=== PATIENT | male | born 1965 | race Caucasian/White ===

== ENCOUNTER → 2016-08-22 | Outpatient (CLI) | payer MEDICARE ==
[~2016-08-22] MED LIST: /DULO30CA OR; ACET500C; ACET500C OR; COLA100C2 OR; COLA100C2 PO; EXCETAB68 PO; EXCETAB81 PO; FLEXERIL PO; GEMF600T PO; HYDR-3719 PO; HYDROCODONE/APAP PO; LIDO5DIS TOP; MELA0.02 PO; MELOPOW PO; MS C15TA5 OR; NAPR500T2 PO; NEUR300C OR; OXYC15TA76 PO; PERC5TAB8 OR; PRIL20CA OR; SM M PO; SOMA; SOMA350T; SOMA350T OR; SOMA350T PO; TRAM50TA2; TRAM50TA2 OR; VICO5TAB; VICO5TAB OR; VICODINES TAB PO; [UNRECOGNIZED DRUG - CODE] PO
--- NOTE | 2016-08-22 09:28 | REP ---
CERVICAL SPINE, SEVEN VIEWS: HISTORY: Spondylosis. The cervical spine is visualized from C1 through C7 in the lateral radiographs. There is no acute fracture or subluxation. The C5-6 and C6-7 intervertebral discs are decreased in height consistent with disc degeneration. Osteophytes are present on C5 and C6. The neural foramina are not well visualized, however, there appears to be narrowing of the C4 through C6 neural foramina. IMPRESSION: Degenerative change as described above.
--- NOTE | 2016-08-22 09:44 | REP ---
LUMBAR SPINE, SEVEN VIEWS: HISTORY: Spondylosis. COMPARISON: 07/14/2001. There is no acute fracture or subluxation. The intervertebral discs are decreased in height consistent with disc degeneration. Osteophytes are present throughout the lumbar spine. There is narrowing of the L4-5 and L5-S1 facet joints. IMPRESSION: Degenerative change as described above.
== END | disposition home or self-care (01) ==
LOC: M CLY 07:34
PROVIDERS: ATTEND Neurological Surgery
DX: M47.892 Other spondylosis, cervical region (principal); M47.896 Other spondylosis, lumbar region; E66.9 Obesity, unspecified; M47.897 Other spondylosis, lumbosacral region

== ENCOUNTER → 2016-08-25 | Outpatient (CLI) | payer MEDICARE ==
--- NOTE | 2016-08-25 16:22 | REP ---
MRI LUMBAR SPINE WITHOUT AND WITH CONTRAST: 08/25/2016: Clinical history: Spondylosis, chronic low back pain. Prior right hemilaminectomy at L5 - S1. Technique: Sagittal T1, T2 and STIR images with axial T1-T2 sequences followed by infusion of 20 mL as of ProHance and axial T1 sequence with sagittal fat suppressed T1 sequence provided. Comparison: MRI 12/06/2015, x-ray 08/22/2016. Findings: Slight loss of lordosis on the sagittal images again noted. There is diffuse disc space narrowing from T12-L1 through L5, S1, least involving L5-S1 discogenic endplate changes at the L4-5, L1-2 and less at L3-4. There is loss of disc water signal at all 6 of these levels. There is no compression deformity or destructive bone lesion at any level. The conus terminates at the L1-2 level. At T11-12 there is no disc bulge or herniation and no spinal or foraminal stenosis. At T12-L1 there is no significant disc bulge or herniation and no spinal or foraminal stenosis. At L1-2 there is a broad-based disc bulge with central disc protrusion and right paracentral disc extrusion. The extruded fragment has migrated inferiorly. I measure at 10 x 10 x 7.5 mm. The conus terminates at the L1-2 level adjacent and the of disc protrusion abuts and flattens the conus. There is central canal stenosis and bilateral foraminal stenosis. At L2-3 there is a diffuse disc bulge small central disc protrusion unchanged. Crowding of the nerve roots in the central canal is noted and stable. Foramina are adequate on both sides. At L3-4 there is a diffuse disc bulge and a central disc extrusion extending inferiorly and unchanged. This causes central canal stenosis with AP canal diameter 7.7 mm. The foramina are without nerve root compression. At L4-5 diffuse disc bulge with ligamentum flavum and facet hypertrophy greater than at the levels above combining with the broad-based disc bulge. This contributes to mild degree of spinal stenosis and is unchanged from the previous study. Facet arthropathy is noted. There is a rim laminotomy defect at this level. Stenosis and nerve root compression of the right L4 nerve root in the foramen and to a lesser extent the left nerve root is compressed as well in its foramen. At L5-S1 there is a broad-based disc bulge and small right paracentral disc extrusion which is unchanged. It abuts and displaces the right S1 nerve root in the central canal. It contributes to some foraminal stenosis on that right side along with facet spur. The left foramen also shows stenosis due to combined factors. Contrast examination demonstrates scar tissue forming around the right L4 and right L5 nerve roots in the foramina and there is a laminotomy at L4-5 of laminectomy L5-S1, again seen. I do not see abnormal enhancement of the epidural space otherwise. There is no evidence of an abscess. Impression: 1. Chronic diffuse extensive degenerative disc changes with an extruded disc at L1-2 which is migrating inferiorly behind the L1 vertebral body and along with the disc extrusion other degenerative changes contributing to spinal stenosis at this level. The extrusion is now below the superior endplate of L1 and measures 10 x 10 x 7.5 mm. 2. Central disc protrusions at L2-3 with mild central canal stenosis, stable. 3. The L3-4 level shows broad-based disc bulge with central canal stenosis, disc extrusion and hypertrophic facet and ligamentum combining to cause moderate stenosis unchanged. Foramina with some mild encroachment. 4. At L4-5 there is also stable spinal stenosis from combined factors of disc bulge, hypertrophic, ligamentum, and facet arthropathy with post laminotomy and enhancement of scar tissue around the L4 root in the right foramen. 5. At L5-S1, there is also a diffuse disc bulge right paracentral disc extrusion and enhancement around the right lateral neural canal and right L5 nerve root from granulation tissue. This is unchanged. Only progressive sign is at L1-2 as described above. Signed by Umang Kim MD 08/25/2016 07:39 P
== END | disposition home or self-care (01) ==
LOC: M RAD 14:12
PROVIDERS: ATTEND Neurological Surgery
DX: M47.896 Other spondylosis, lumbar region (principal)
CPT/HCPCS: 72158; A9576

== ENCOUNTER → 2016-12-12 | Outpatient (REF) | payer MEDICARE ==
[2016-12-12 11:50] LABS: ALBUMIN 4.3 GM/DL (3.2-5.2); ALBUMIN/GLOBULIN RATIO 1.23 (1.00-1.93); ALKALINE PHOSPHATASE 113 U/L (45-117); ALT/SGPT 50 U/L (12-78); ANION GAP 8 MEQ/L (8-16); AST/SGOT 31 U/L (15-37); BILIRUBIN,TOTAL 0.7 MG/DL (0.2-1.0); BLOOD UREA NITROGEN 28 MG/DL (7-18); CARBON DIOXIDE LEVEL 26 MEQ/L (21-32); CHLORIDE LEVEL 108 MEQ/L (98-107); CREATININE FOR GFR 1.06 MG/DL (0.70-1.30); GLOMERULAR FILTRATION RATE > 60.0 (>56); GLUCOSE, FASTING 98 MG/DL (70-105); POTASSIUM SERUM 4.1 MEQ/L (3.5-5.1); SODIUM LEVEL 142 MEQ/L (136-145); TOTAL PROTEIN 7.8 GM/DL (6.4-8.2)
== END ==
LOC: M SFHCCLAY 07:48
PROVIDERS: ATTEND Family Medicine
DX: E78.2 Mixed hyperlipidemia (principal)

== ENCOUNTER → 2017-06-15 | Outpatient (REF) | payer MEDICARE ==
[~2017-06-15] MED LIST changes: -MELA0.02 PO; +MELA3TAB49 PO
[2017-06-15 12:23] LABS: ALBUMIN 4.1 GM/DL (3.2-5.2); ALBUMIN/GLOBULIN RATIO 1.14 (1.00-1.93); ALKALINE PHOSPHATASE 107 U/L (45-117); ALT/SGPT 43 U/L (12-78); ANION GAP 7 MEQ/L (8-16); AST/SGOT 25 U/L (7-37); BILIRUBIN,TOTAL 0.5 MG/DL (0.2-1.0); BLOOD UREA NITROGEN 17 MG/DL (7-18); CALCIUM LEVEL 9.2 MG/DL (8.5-10.1); CARBON DIOXIDE LEVEL 29 MEQ/L (21-32); CHLORIDE LEVEL 104 MEQ/L (98-107); CHOLESTEROL LEVEL 259 MG/DL (<200); CREATININE FOR GFR 0.83 MG/DL (0.70-1.30); GLOMERULAR FILTRATION RATE > 60.0 (>56); GLUCOSE, FASTING 98 MG/DL (70-105); POTASSIUM SERUM 4.4 MEQ/L (3.5-5.1); SODIUM LEVEL 140 MEQ/L (136-145); TOTAL PROTEIN 7.7 GM/DL (6.4-8.2); TRIGLYCERIDES LEVEL 233 MG/DL (<150)
== END ==
LOC: M SFHCCLAY 07:10
PROVIDERS: ATTEND Family Medicine
DX: E78.2 Mixed hyperlipidemia (principal); Z12.5 Encounter for screening for malignant neoplasm of prostate; I10 Essential (primary) hypertension
CPT/HCPCS: 80053; 80061; 84443; G0103

== ENCOUNTER → 2017-07-31 | Outpatient (CLI) | payer MEDICARE | LOC: M WUC 12:19 | DX: M25.512 Pain in left shoulder (principal); M25.522 Pain in left elbow; M25.532 Pain in left wrist | CPT/HCPCS: 73030 ==

== ENCOUNTER → 2017-10-21 | Outpatient (CLI) | payer MEDICARE | LOC: M RAD 06:34 | DX: M48.061 Spinal stenosis, lumbar region without neurogenic claudication (principal); M51.26 Other intervertebral disc displacement, lumbar region; M43.06 Spondylolysis, lumbar region; M51.27 Other intervertebral disc displacement, lumbosacral region; M43.07 Spondylolysis, lumbosacral region; M99.83 Other biomechanical lesions of lumbar region | CPT/HCPCS: 72148 ==

== ENCOUNTER → 2018-04-09 | Outpatient (REF) | payer MEDICARE ==
[2018-04-09 12:23] LABS: ALBUMIN 4.1 GM/DL (3.2-5.2); ALBUMIN/GLOBULIN RATIO 1.14 (1.00-1.93); ALKALINE PHOSPHATASE 125 U/L (45-117); ALT/SGPT 59 U/L (12-78); ANION GAP 8 MEQ/L (8-16); AST/SGOT 35 U/L (7-37); BILIRUBIN,TOTAL 0.7 MG/DL (0.2-1.0); BLOOD UREA NITROGEN 23 MG/DL (7-18); CALCIUM LEVEL 8.9 MG/DL (8.5-10.1); CARBON DIOXIDE LEVEL 25 MEQ/L (21-32); CHLORIDE LEVEL 109 MEQ/L (98-107); CHOLESTEROL LEVEL 171 MG/DL (<200); CREATININE FOR GFR 1.06 MG/DL (0.70-1.30); GLOMERULAR FILTRATION RATE > 60.0 (>56); GLUCOSE, FASTING 91 MG/DL (70-100); HDL CHOLESTEROL 41 MG/DL (>40); LDL CHOLESTEROL 104 MG/DL (<100); NON-HDL-C 130 MG/DL; POTASSIUM SERUM 4.1 MEQ/L (3.5-5.1); SODIUM LEVEL 142 MEQ/L (136-145); TOTAL PROTEIN 7.7 GM/DL (6.4-8.2); TRIGLYCERIDES LEVEL 130 MG/DL (<150)
== END ==
LOC: M SFHCCLAY 07:07
DX: I10 Essential (primary) hypertension (principal); E78.2 Mixed hyperlipidemia
CPT/HCPCS: 80053

== ENCOUNTER → 2018-07-12 | Outpatient (REF) | payer MEDICARE ==
[2018-07-12 12:10] LABS: CHOLESTEROL LEVEL 184 MG/DL (<200); CHOLESTEROL RISK RATIO 4.181 (<5); HDL CHOLESTEROL 44 MG/DL (>40); LDL CHOLESTEROL 106 MG/DL (<100); NON-HDL-C 140 MG/DL; TRIGLYCERIDES LEVEL 171 MG/DL (<150)
== END ==
LOC: M SFHCCLAY 07:23
DX: E78.2 Mixed hyperlipidemia (principal)
CPT/HCPCS: 80061

== ENCOUNTER → 2019-02-25 | Outpatient (REF) | payer MEDICARE ==
[~2019-02-25] MED LIST changes: -/DULO30CA OR; +CYMB1CAP5 OR
[2019-02-25 11:58] LABS: HEMATOCRIT 47.7 % (42.0-52.0); HEMOGLOBIN 15.7 g/dl (13.5-17.5); MEAN CORPUSCULAR HEMOGLOBIN 30.2 pg (27.0-33.0); MEAN CORPUSCULAR HGB CONC 32.9 g/dl (32.0-36.5); MEAN CORPUSCULAR VOLUME 91.7 fl (80.0-96.0); PLATELET COUNT, AUTOMATED 218 10^3/uL (150-450); WHITE BLOOD COUNT 5.8 10^3/uL (4.0-10.0)
[2019-02-25 12:13] LABS: ALBUMIN 3.8 GM/DL (3.2-5.2); ALT/SGPT 61 U/L (12-78); BILIRUBIN,TOTAL 0.5 MG/DL (0.2-1.0); BLOOD UREA NITROGEN 23 MG/DL (7-18); CALCIUM LEVEL 8.9 MG/DL (8.5-10.1); CARBON DIOXIDE LEVEL 31 MEQ/L (21-32); CHLORIDE LEVEL 107 MEQ/L (98-107); CHOLESTEROL LEVEL 197 MG/DL (<200); CREATININE FOR GFR 0.88 MG/DL (0.70-1.30); GLOMERULAR FILTRATION RATE > 60.0 (>56); GLUCOSE, FASTING 98 MG/DL (70-100); HDL CHOLESTEROL 49 MG/DL (>40); LDL CHOLESTEROL 121 MG/DL (<100); NON-HDL-C 148 MG/DL; POTASSIUM SERUM 4.4 MEQ/L (3.5-5.1); SODIUM LEVEL 144 MEQ/L (136-145); TRIGLYCERIDES LEVEL 135 MG/DL (<150)
== END ==
LOC: M SFHCCLAY 07:03
PROVIDERS: ATTEND Nurse Practitioner Family
DX: K21.9 Gastro-esophageal reflux disease without esophagitis (principal); I10 Essential (primary) hypertension; E78.2 Mixed hyperlipidemia

== ENCOUNTER → 2019-08-26 | Outpatient (REF) | payer MEDICARE ==
[2019-08-26 12:27] LABS: ALBUMIN 4.1 GM/DL (3.2-5.2); ALT/SGPT 34 U/L (12-78); BILIRUBIN,TOTAL 0.5 MG/DL (0.2-1.0); BLOOD UREA NITROGEN 16 MG/DL (7-18); CARBON DIOXIDE LEVEL 31 MEQ/L (21-32); CHLORIDE LEVEL 104 MEQ/L (98-107); CHOLESTEROL LEVEL 168 MG/DL (<200); CHOLESTEROL RISK RATIO 3.652 (<5); CREATININE FOR GFR 0.97 MG/DL (0.70-1.30); GLOMERULAR FILTRATION RATE > 60.0 (>56); GLUCOSE, FASTING 85 MG/DL (70-100); HDL CHOLESTEROL 46 MG/DL (>40); LDL CHOLESTEROL 102 MG/DL (<100); NON-HDL-C 122 MG/DL; POTASSIUM SERUM 4.3 MEQ/L (3.5-5.1); SODIUM LEVEL 140 MEQ/L (136-145); TOTAL PROTEIN 7.4 GM/DL (6.4-8.2); TRIGLYCERIDES LEVEL 102 MG/DL (<150)
== END ==
LOC: M SFHCCLAY 07:02
PROVIDERS: ATTEND Nurse Practitioner Family
DX: I10 Essential (primary) hypertension (principal); E78.2 Mixed hyperlipidemia

== ENCOUNTER → 2020-10-09 | Outpatient (REF) | payer MEDICARE ==
[~2020-10-09] MED LIST changes: +OXYC-1 PO; -OXYC15TA76 PO
[2020-10-09 16:25] LABS: HEMOGLOBIN 9.8 g/dl (13.5-17.5); MEAN CORPUSCULAR HEMOGLOBIN 29.2 pg (27.0-33.0); MEAN CORPUSCULAR HGB CONC 31.6 g/dl (32.0-36.5); MEAN CORPUSCULAR VOLUME 92.3 fl (80.0-96.0); PLATELET COUNT, AUTOMATED 474 10^3/uL (150-450); RED BLOOD COUNT 3.36 10^6/uL (4.30-6.10); WHITE BLOOD COUNT 7.9 10^3/uL (4.0-10.0)
== END ==
LOC: M SFHCCLAY 10:19
PROVIDERS: ATTEND Family Medicine
DX: D64.9 Anemia, unspecified (principal)
CPT/HCPCS: 85027; G0463

== ENCOUNTER → 2020-11-09 | Outpatient (REF) | payer MEDICARE ==
[2020-11-09 12:07] LABS: HEMATOCRIT 37.6 % (42.0-52.0); HEMOGLOBIN 11.4 g/dl (13.5-17.5); MEAN CORPUSCULAR HEMOGLOBIN 26.1 pg (27.0-33.0); MEAN CORPUSCULAR HGB CONC 30.3 g/dl (32.0-36.5); PLATELET COUNT, AUTOMATED 309 10^3/uL (150-450); RED BLOOD COUNT 4.37 10^6/uL (4.30-6.10)
[2020-11-09 13:33] LABS: ALBUMIN 4.1 GM/DL (3.2-5.2); ALT/SGPT 41 U/L (12-78); BILIRUBIN,TOTAL 0.5 MG/DL (0.2-1.0); BLOOD UREA NITROGEN 21 MG/DL (7-18); CALCIUM LEVEL 10.2 MG/DL (8.5-10.1); CARBON DIOXIDE LEVEL 27 MEQ/L (21-32); CHLORIDE LEVEL 104 MEQ/L (98-107); CHOLESTEROL LEVEL 229 MG/DL (<200); CHOLESTEROL RISK RATIO 4.163 (<5); CREATININE FOR GFR 0.76 MG/DL (0.70-1.30); FERRITIN 39 NG/ML (26-388); FOLATE 20.3 NG/ML (>5.4); GLOMERULAR FILTRATION RATE > 60.0 (>56); GLUCOSE, FASTING 82 MG/DL (70-100); HDL CHOLESTEROL 55 MG/DL (>40); IRON (FE) 39 UG/DL (65-175); LDL CHOLESTEROL 137 MG/DL (<100); NON-HDL-C 174 MG/DL; PERCENT SATURATION 8.5 % (19.7-50.0); POTASSIUM SERUM 4.4 MEQ/L (3.5-5.1); SODIUM LEVEL 138 MEQ/L (136-145); TOTAL IRON BINDING CAPACITY 458 UG/DL (250-450); TOTAL PROTEIN 8.1 GM/DL (6.4-8.2); TRIGLYCERIDES LEVEL 184 MG/DL (<150); VITAMIN B12 LEVEL 449 PG/ML (247-911)
== END ==
LOC: M SFHCCLAY 08:21
PROVIDERS: ATTEND Nurse Practitioner Family
DX: D64.9 Anemia, unspecified (principal); I10 Essential (primary) hypertension; N40.0 Benign prostatic hyperplasia without lower urinary tract symptoms; E78.2 Mixed hyperlipidemia
CPT/HCPCS: 80053; 80061; 82607; 82728; 82746; 83550; 85027; 85046; G0103; G0463

== ENCOUNTER → 2020-12-03 | Outpatient (REF) | payer MEDICARE ==
[2020-12-03 11:45] LABS: HEMATOCRIT 40.9 % (42.0-52.0); HEMOGLOBIN 12.2 g/dl (13.5-17.5); MEAN CORPUSCULAR HEMOGLOBIN 25.2 pg (27.0-33.0); MEAN CORPUSCULAR HGB CONC 29.8 g/dl (32.0-36.5); MEAN CORPUSCULAR VOLUME 84.3 fl (80.0-96.0); PLATELET COUNT, AUTOMATED 277 10^3/uL (150-450); RED BLOOD COUNT 4.85 10^6/uL (4.30-6.10); WHITE BLOOD COUNT 5.7 10^3/uL (4.0-10.0)
[2020-12-03 12:35] LABS: ALBUMIN 4.1 GM/DL (3.2-5.2); ALT/SGPT 34 U/L (12-78); BILIRUBIN,TOTAL 0.4 MG/DL (0.2-1.0); BLOOD UREA NITROGEN 21 MG/DL (7-18); CALCIUM LEVEL 9.8 MG/DL (8.5-10.1); CARBON DIOXIDE LEVEL 29 MEQ/L (21-32); CHLORIDE LEVEL 106 MEQ/L (98-107); CREATININE FOR GFR 0.86 MG/DL (0.70-1.30); GLOMERULAR FILTRATION RATE > 60.0 (>56); GLUCOSE, FASTING 106 MG/DL (70-100); IRON (FE) 29 UG/DL (65-175); PERCENT SATURATION 6.4 % (19.7-50.0); POTASSIUM SERUM 4.2 MEQ/L (3.5-5.1); SODIUM LEVEL 139 MEQ/L (136-145); TOTAL IRON BINDING CAPACITY 451 UG/DL (250-450); TOTAL PROTEIN 7.9 GM/DL (6.4-8.2)
== END ==
LOC: M SFHCCLAY 07:32
PROVIDERS: ATTEND Nurse Practitioner Family
DX: D64.9 Anemia, unspecified (principal); I10 Essential (primary) hypertension

== ENCOUNTER → 2020-12-07 | Outpatient (CLI) | payer MEDICARE ==
--- NOTE | 2020-12-07 09:40 | REP ---
INDICATION: M25.511, RIGHT SHOULDER PAIN COMPARISON: None. TECHNIQUE: Three views right shoulder. FINDINGS: There is no evidence of acute fracture, dislocation, or intrinsic bone disease.Small tendinous calcification is seen along the superolateral humeral head. There is moderate acromial spurring. There is mild glenoid spurring. IMPRESSION: No fracture or dislocation. Mild tendinous calcification. Spurring of acromion and glenoid. <Electronically signed by Bernabe Correa > 12/07/20 [id number]
== END ==
LOC: M CLY 09:15
PROVIDERS: ATTEND Nurse Practitioner Family
DX: M25.511 Pain in right shoulder (principal)
CPT/HCPCS: 73030; G0463

== ENCOUNTER → 2021-07-03 | Outpatient (REF) | payer MEDICARE ==
[2021-07-03 11:34] LABS: HEMATOCRIT 45.9 % (42.0-52.0); HEMOGLOBIN 15.1 g/dl (13.5-17.5); MEAN CORPUSCULAR HEMOGLOBIN 29.8 pg (27.0-33.0); MEAN CORPUSCULAR HGB CONC 32.9 g/dl (32.0-36.5); MEAN CORPUSCULAR VOLUME 90.5 fl (80.0-96.0); PLATELET COUNT, AUTOMATED 224 10^3/uL (150-450); RED BLOOD COUNT 5.07 10^6/uL (4.30-6.10); WHITE BLOOD COUNT 5.1 10^3/uL (4.0-10.0)
[2021-07-03 11:55] LABS: PERCENT SATURATION 19.2 % (19.7-50.0)
== END ==
LOC: M SFHCCLAY 07:31
PROVIDERS: ATTEND Family Medicine
DX: D64.9 Anemia, unspecified (principal)

== ENCOUNTER → 2021-12-17 | Outpatient (REF) | payer MEDICARE ==
[2021-12-17 11:37] LABS: BLOOD UREA NITROGEN 26 MG/DL (7-18); CALCIUM LEVEL 9.1 MG/DL (8.5-10.1); CARBON DIOXIDE LEVEL 29 MEQ/L (21-32); CHLORIDE LEVEL 109 MEQ/L (98-107); CHOLESTEROL LEVEL 159 MG/DL (<200); CHOLESTEROL RISK RATIO 4.076 (<5); CREATININE FOR GFR 0.93 MG/DL (0.70-1.30); GLOMERULAR FILTRATION RATE > 60.0 (>56); GLUCOSE, FASTING 93 MG/DL (70-100); HDL CHOLESTEROL 39 MG/DL (>40); LDL CHOLESTEROL 74 MG/DL (<100); NON-HDL-C 120 MG/DL; POTASSIUM SERUM 4.2 MEQ/L (3.5-5.1); SODIUM LEVEL 141 MEQ/L (136-145); TRIGLYCERIDES LEVEL 228 MG/DL (<150)
== END ==
LOC: M SFHCCLAY 07:01
PROVIDERS: ATTEND Family Medicine
DX: I11.9 Hypertensive heart disease without heart failure (principal); E78.5 Hyperlipidemia, unspecified; N40.0 Benign prostatic hyperplasia without lower urinary tract symptoms; Z12.5 Encounter for screening for malignant neoplasm of prostate
CPT/HCPCS: 80048; 80061; G0103

== ENCOUNTER → 2022-12-16 | Outpatient (REF) | payer OTHER ==
[2022-12-16 12:03] LABS: CHOLESTEROL RISK RATIO 4.06 (<5); LDL CHOLESTEROL 107.4 MG/DL (<100)
== END ==
LOC: M SFHCCLAY 07:07
PROVIDERS: ATTEND Nurse Practitioner Family
DX: Z00.00 Encounter for general adult medical examination without abnormal findings (principal); E78.5 Hyperlipidemia, unspecified; N40.0 Benign prostatic hyperplasia without lower urinary tract symptoms; Z12.5 Encounter for screening for malignant neoplasm of prostate
CPT/HCPCS: 80061; G0103

== ENCOUNTER → 2023-12-23 | Outpatient (REF) | payer OTHER ==
[2023-12-23 12:54] LABS: PSA SCREENING 1.46 NG/ML (< 4.00)
[2023-12-23 12:56] LABS: ALBUMIN 4.1 G/DL (3.2-5.2); ALKALINE PHOSPHATASE 107 U/L (46-116); ALT/SGPT 23 U/L (7.0-40); AST/SGOT 13 U/L (<34); BILIRUBIN,TOTAL 0.7 MG/DL (0.3-1.2); BLOOD UREA NITROGEN 21 MG/DL (9-23); CALCIUM LEVEL 9.3 MG/DL (8.3-10.6); CARBON DIOXIDE LEVEL 28 MMOL/L (20-31); CHLORIDE LEVEL 106 MMOL/L (98-107); CHOLESTEROL LEVEL 178 MG/DL (<200); CHOLESTEROL RISK RATIO 4.19 (<5); CREATININE FOR GFR 0.85 MG/DL (0.70-1.30); GLOMERULAR FILTRATION RATE > 60.0 (>49); GLUCOSE, FASTING 103 MG/DL (74-106); HDL CHOLESTEROL 42.4 MG/DL (>40); LDL CHOLESTEROL 106.8 MG/DL (<100); NON-HDL-C 135.6 MG/DL; POTASSIUM SERUM 4.7 MMOL/L (3.5-5.1); SODIUM LEVEL 139 MMOL/L (136-145); TOTAL PROTEIN 7.2 G/DL (5.7-8.2); TRIGLYCERIDES LEVEL 144 MG/DL (<150)
== END ==
LOC: M SFHCCLAY 06:58
PROVIDERS: ATTEND Nurse Practitioner Family
DX: I10 Essential (primary) hypertension (principal); E78.2 Mixed hyperlipidemia; Z12.5 Encounter for screening for malignant neoplasm of prostate
CPT/HCPCS: 80053; 80061; G0103

== ENCOUNTER → 2024-01-01 | Outpatient (CLI) | payer OTHER | LOC: M CLY 09:57 | PROVIDERS: ATTEND Nurse Practitioner Family | DX: M25.512 Pain in left shoulder (principal); M54.2 Cervicalgia ==

== ENCOUNTER → 2025-05-18 | Outpatient (CLI) | payer MEDICARE ==
[~2025-05-18] MED LIST changes: +ATOR1TAB19 PO; +BACL10TA2 PO; +DICL100G10; +HYDR-4514 PO; +LEXA1TAB PO; +LOPI600T PO; +MELO15TA28 PO; +PANT40TA29 PO; +PREG150C2 PO; +TAMS1CAP17 PO
== END ==
LOC: M CLY 10:30
PROVIDERS: ATTEND Nurse Practitioner Family
DX: Z01.818 Encounter for other preprocedural examination (principal)

== ENCOUNTER → 2025-05-18 | Outpatient (REF) | payer MEDICARE ==
[2025-05-18 17:21] LABS: APPEARANCE, URINE CLEAR (CLEAR); BACTERIA, URINE AUTO NEGATIVE (NEGATIVE); BILIRUBIN, URINE AUTO NEGATIVE (NEGATIVE); BLOOD, URINE BLOOD NEGATIVE (NEGATIVE); GLUCOSE, URINE (UA) AUTO NEGATIVE (NEGATIVE); KETONE, URINE AUTO NEGATIVE (NEGATIVE); LEUKOCYTE ESTERASE, URINE AUTO NEGATIVE (NEGATIVE); MUCUS, URINE SMALL (NEGATIVE); NITRITE, URINE AUTO NEGATIVE (NEGATIVE); PROTEIN, URINE AUTO NEGATIVE (NEGATIVE); RBC, URINE AUTO 0 /HPF (0-3); SPECIFIC GRAVITY URINE AUTO 1.016 (1.002-1.035); SQUAMOUS EPITHELIAL CELL UR AU 0 /HPF (0-6); UROBILINOGEN, URINE AUTO 0.2 mg/dL (0.0-2.0); WBC, URINE AUTO 0 /HPF (0-3)
[2025-05-18 17:22] LABS: BASO # 0.0 10^3/uL (0.0-0.2); BASO % 0.5 % (0.0-1.0); EOS # 0.1 10^3/uL (0.0-0.5); EOS % 1.4 % (0.0-3.0); LYMPH # 1.9 10^3/uL (1.5-5.0); LYMPH % 24.4 % (24.0-44.0); MONO # 0.6 10^3/uL (0.0-0.8); MONO % 7.3 % (2.0-8.0); NEUTROPHILS # 5.1 10^3/uL (1.5-8.5); NEUTROPHILS % 66.1 % (36.0-66.0); PLATELET COUNT, AUTOMATED 226 10^3/uL (150-450)
[2025-05-18 17:30] LABS: ALT/SGPT 48 U/L (7.0-40); AST/SGOT 44 U/L (<34); CALCIUM LEVEL 9.7 MG/DL (8.3-10.6); CARBON DIOXIDE LEVEL 29 MMOL/L (20-31); CHLORIDE LEVEL 105 MMOL/L (98-107); CREATININE FOR GFR 0.93 MG/DL (0.70-1.30); GLOMERULAR FILTRATION RATE > 90.0 (>49); POTASSIUM SERUM 4.9 MMOL/L (3.5-5.1); SODIUM LEVEL 143 MMOL/L (136-145)
[2025-05-18 17:32] LABS: INR 0.95
== END ==
LOC: M SFHCCLAY 10:19
PROVIDERS: ATTEND Nurse Practitioner Family
DX: Z01.818 Encounter for other preprocedural examination (principal); N40.0 Benign prostatic hyperplasia without lower urinary tract symptoms